=== PATIENT | male | born 1945 | race Caucasian/White ===

== ENCOUNTER 2021-01-11 19:55 | Emergency (ER) | payer MEDICARE ==
[~2021-01-11] VITALS: Ht 175.3 cm; Wt 105.5 kg
[~2021-01-11 19:55] MED LIST: ALLO300T PO; AMIO200T42 PO; APIX2.5T PO; CARV3.122 PO; CEFD300C37 PO; FERR324T5 PO; FURO40TA6 PO; INSU100V13 SC; LEVO88TA2 PO; MIDO2.5T PO; POTA20TA14 PO; PRAV80TA2 PO; PRED20TA PO; SPIR50TA PO; SPIR50TA4 PO; THIA500T PO; TORS20TA2 PO; [UNRECOGNIZED DRUG - OTHER] PO
[2021-01-11 21:44] LABS: MEAN CORPUSCULAR HEMOGLOBIN 33.8 pg (27.5-34.5); MEAN CORPUSCULAR HGB CONC 32.1 g/dL (33.2-36.2); MEAN PLATELET VOLUME 8.7 fL (7.4-10.4); PLATELET COUNT 114 x10^3/uL (130-400); RED BLOOD COUNT 2.96 x10^6/uL (4.38-5.82); RED CELL DISTRIBUTION WIDTH 16.9 % (9.4-14.8)
[2021-01-11 21:52] LABS: ALANINE AMINOTRANSFERASE 60 U/L (12-78); ALBUMIN 2.9 g/dL (3.4-5.0); ANION GAP 6 mmol/L (5-15); CALCIUM 8.6 mg/dL (8.5-10.1); CHLORIDE 103 mmol/L (98-107); CREATININE 1.92 mg/dL (0.7-1.3)
[2021-01-11 21:57] LABS: ALKALINE PHOSPHATASE 98 U/L (45-117); BILIRUBIN,TOTAL 0.9 mg/dL (0.2-1.0); TOTAL PROTEIN 8.2 g/dL (6.4-8.2)
[2021-01-11 22:27] LABS: ANISOCYTOSIS 1+; BAND#(MANUAL) 0.44 x10^3/uL; BANDS%(MANUAL) 5 % (0-7); BASOS#(MANUAL) 0.26 x10^3/uL (0-0.1); BASOS% (MANUAL) 3 % (0-1); EOS#(MANUAL) 0.09 x10^3/uL (0.0-0.4); EOS% (MANUAL) 1 % (1-7); LYMPH#(MANUAL) 0.61 x10^3/uL (1-3.4); LYMPHS% (MANUAL) 7 % (22-44); MONOS#(MANUAL) 0.61 x10^3/uL (0.3-2.7); MONOS% (MANUAL) 7 % (2-9); SEGS% (MANUAL) 77 % (42-75)
[2021-01-11 22:28] LABS: <PLATELET ESTIMATE> DECREASED; <PLT MORPHOLOGY> NORMAL PLT MORPH
[2021-01-11 22:55] VITALS: BP 102/69
[2021-01-11] MEDS ORDERED: HYDROcodone/APAP 5/325 TABLET PO ONE (23:30)
[2021-01-11] MEDS ORDERED: HYDROcodone/APAP 5/325 TABLET ONE (23:31)
== END 2021-01-12 00:13 | disposition home or self-care (01) ==
LOC: ED 23:00
DX: S50.02XA Contusion of left elbow, initial encounter (principal); M25.422 Effusion, left elbow; I11.0 Hypertensive heart disease with heart failure; I50.9 Heart failure, unspecified; E78.5 Hyperlipidemia, unspecified; E11.9 Type 2 diabetes mellitus without complications; I25.810 Atherosclerosis of coronary artery bypass graft(s) without angina pectoris; W18.30XA Fall on same level, unspecified, initial encounter; Y93.89 Activity, other specified; Y92.009 Unspecified place in unspecified non-institutional (private) residence as the place of occurrence of the external cause; Y99.8 Other external cause status
CPT/HCPCS: 29105; 36415; 71045; 80053; 83880; 85025; 93005; 93970; 99285